=== PATIENT | male | born 1965 | race Caucasian/White ===

== ENCOUNTER → 2017-04-09 10:05 | Outpatient (CLI) | payer BC, SELFPAY ==
--- NOTE | 2017-04-09 10:18 | XR_ITS ---
XR ribs LT min 3V w CXR1V Ordering Physician: Izzy Cui Patient Age: 51 years: Male HISTORY: ITS.REASON: LEFT RIB PAIN Injury Post into chair. TECHNIQUE: Oblique views along with AP chest above and below diaphragm left rib evaluation COMPARISON : FINDINGS . Recent/acute Posterior Left seventh rib fracture , near the level of the tip of of scapula on these images. . The lungs are well expanded and clear with no active disease. . No pneumothorax evident. No pleural effusion. No pleural thickening. The heart abby and mediastinal structures satisfactory. IMPRESSION: *Posterior Left seventh rib fracture
== END ==
PROVIDERS: PCP Nurse Practitioner Family; Visit Provider Nurse Practitioner Family
DX: R07.81 Pleurodynia (principal)
CPT/HCPCS: 71101

== ENCOUNTER → 2017-09-06 14:14 | Outpatient (CLI) | payer BC, SELFPAY ==
--- NOTE | 2017-09-06 14:17 | US_ITS ---
ULTRASOUND THYROID. , Ultrasound neck PROCEDURE: Multiple sagittal & transverse ultrasound images of the thyroid. With limited survey remainder of neck HISTORY: Fullness the left side of the neck COMPARISON: None ----- FINDINGS: The submitted images focus on the thyroid No thyroid nodule or mass is evident. Generous size gland bilaterally. Normal flow to both right and left lobe. RIGHT LOBE: 4.1 cm length x 2.2 cm x 2. 1 cm AP on my measurements LEFT LOBE: 3.8 cm x 1.8 cm x 1.7 cm AP with my measurements . ISTHMUS: Generous thickness isthmus measures nearly 6 mm AP . Small 4 mm x 1.5 mm Tiny cystic area at the left isthmus IMPRESSION ...... Mildly thickened isthmus with generous volume right and left thyroid lobe borderline enlarged thyroid gland bilateral. no significant thyroid nodule. Only question a Tiny 4 mm x 1.5 mm cyst at the left isthmus This study primarily surveys the thyroid with limited evaluation on the neck . Recommend CT neck with contrast for more extensive neck evaluation beyond thyroid region.
== END ==
PROVIDERS: Family Provider Family Medicine; PCP Nurse Practitioner Family; Visit Provider Family Medicine
DX: R22.1 Localized swelling, mass and lump, neck (principal)
CPT/HCPCS: 76536

== ENCOUNTER → 2017-10-04 07:49 | Outpatient (CLI) | payer BC, SELFPAY ==
--- NOTE | 2017-10-04 07:51 | CT_ITS ---
CT soft tissue neck wo con Ordering Physician: Jayshree Wesley MD Patient Age: 52 years: Male HISTORY: ITS.REASON: LOCALIZED SWELLING,MASS OR LUMP IN NECK Soft tissue swelling per patient on the left side TECHNIQUE: Helical CT scanning performed at neck. No Oral nor IV contrast utilized. Axial sagittal and coronal reconstructions performed on CT workstation. All CT scans at this facility used one or more dose reduction techniques , viz: automatic exposure control, ma/Kv adjustment per patient's size, (including targeted exam where dose matched to the indication; i.e. head); or iterative reconstruction technique COMPARISON :None FINDINGS CT neck studies without contrast are of decreased sensitivity and limited. Lack of contrast Make it more difficult to distinguish vascular structures, lymph nodes & tissue planes. The technologist did not place any markers over any evident palpable areas if there is a palpable area. I see no significant neck adenopathy nor neck mass . the thyroid gland slightly longer on the right than left but no discrete nodule or mass associated. There is some asymmetry of the submandibular gland with the left submandibular gland slightly more generous than the right. . increased tortuous ectatic appearing superficial right neck veins throughout the right neck. These are not evident on the left The right jugular vein is distended, notably more prominent on the right than left. With this the external jugular is quite pronounced in the right anterior to the sternocleidomastoid. With these observations survey the upper chest.. SVC unremarkable. No dominant masses at upper chest. Only Scattered moderate nodes are seen at the mediastinum including AP window where. . Generous caliber aortic arch and with descending aorta measuring 3 cm. Ascending aorta 3.5 cm maximally. . The nasopharynx, oropharynx on show no significant findings. Prominent streak artifact does obscure structures and oropharynx. Minimal punctate calcification at paraPharyngeal and tonsils region noted . Small pleural-based density at the right upper lung, towards apex likely due to scarring but would benefit from follow-up. A CT chest in 6 months ideally. Mild emphysematous changes and bleb formation right apex also noted IMPRESSION: ...... No discrete left neck mass is identified on this noncontrast study. The lack of contrast does decrease ability to discern structures & decrease sensitivity. No palpable mass was marked by the technologist either to draw attention to the area of concern.. Incidentally note asymmetric prominent venous structures throughout the right neck, including both prominent dilated internal jugular vein and tortuous dilated external jugular venous branches. These may be evident clinically... In view of this survey of SVC and upper chest show no additional significant findings that may contribute to to this appearance.. At the symptomatic left neck, only Question Perhaps mild asymmetry of submandibular glands. Left submandibular glands slightly different contour than the the right & perhaps extending very slightly more inferiorly. Although this is unimpressive on CT, If this is the site of fullness then it may warrant follow-up ultrasound of submandibular glands ( vs follow-up CT neck with contrast) .
== END ==
PROVIDERS: Family Provider Family Medicine; PCP Nurse Practitioner Family; Visit Provider Family Medicine
DX: R22.1 Localized swelling, mass and lump, neck (principal)
CPT/HCPCS: 70490

== ENCOUNTER → 2018-09-17 09:29 | Outpatient (POV) | payer BC, SELFPAY | PROVIDERS: Visit Provider Dermatology | DX: Z00.00 Encounter for general adult medical examination without abnormal findings (principal) ==

== ENCOUNTER → 2019-07-09 13:05 | Outpatient (CLI) | payer BC, SELFPAY ==
--- NOTE | 2019-07-09 13:11 | XR_ITS ---
PROCEDURE: XR SHOULDER LT MIN 2V CLINICAL INDICATION: LT SHOULDER PAIN COMPARISON: No exams were available for comparison FINDINGS: No fracture or dislocation. No lytic or blastic change. There are mild osteoarthritic changes at the acromioclavicular joint and there is a slightly high-riding humeral head with mild subacromial stenosis which may be seen with rotator cuff disease. There is an old fracture of the left 7th rib IMPRESSION: No acute findings. There are mild osteoarthritic changes at the acromioclavicular joint and there is a slightly high-riding humeral head with mild subacromial stenosis which may be seen with rotator cuff disease. Dictated by: David Hutson MD 07/09/2019 14:42 Electronically signed by David Hutson MD in [facility] 07/09/2019 14:43
--- NOTE | 2019-07-09 13:11 | XR_ITS ---
PROCEDURE: XR CERVICAL SPINE 5V CLINICAL INDICATION: LT SHOULDER PAIN Neck pain COMPARISON: CS5 CERVICAL SPINE 4 OR 5 VIEWS from 11/16/2016 FINDINGS: Normal alignment. There is degenerative disc disease at C5-C6 and C6-C7 and C7-T1. Prominent anterior syndesmophytes are present from C2 to C7 consistent with DISH. There is mild uncovertebral hypertrophy with mild right foraminal narrowing at C5-C6 and C6-C7 and on the left at C3-C4 C4-C5 and C6-C7. Carotid artery calcifications are present. There is some calcification posteriorly within the soft tissues at C5 and C6. Compared to 11/16/2016 there has been no significant change. No fracture or dislocation. IMPRESSION: Cervical spondylosis with degenerative disc disease and uncovertebral arthropathy along with DISH as described above. Dictated by: David Hutson MD 07/09/2019 14:56 Electronically signed by David Hutson MD in [facility] 07/09/2019 14:56
== END ==
PROVIDERS: PCP Family Medicine; Visit Provider Family Medicine
DX: M25.512 Pain in left shoulder (principal)
CPT/HCPCS: 72050; 73030

== ENCOUNTER → 2019-07-16 13:53 | Outpatient (CLI) | payer BC, SELFPAY ==
--- NOTE | 2019-07-16 13:59 | CT_ITS ---
PROCEDURE: CT CERVICAL SPINE WO CON CLINICAL INDICATION: LT SHOULDER PAIN,PARALYSIS LT UPPER EXTREMITY Posterior neck pain radiating down left side of neck into the shoulders and down left arm COMPARISON: [id number] XR ribs LT min 3V w CXR1V from 04/09/2017 TECHNIQUE: Study is performed without contrast secondary to history of contrast reaction. Axial images obtained with sagittal and coronal reformats. All CT scans at the facility use one or more dose reduction, viz: automated exposure control, ma/kV adjustment per patient size (including targeted exams where dose is matched to indication, i.e. head), or iterative reconstruction technique. Axial spiral CT scanning performed of the cervical spine beginning at the base of the skull and continuing to the upper T-spine. 3-D multiplanar reconstruction with 3-D manipulation of volumetric data set in image rendering was completed by the radiologist and/or technologist with the supervision of the radiologist on independent workstation. FINDINGS: There is normal alignment. There is DISH of the cervical spine with prominent anterior syndesmophytes from C2 to C7 most prominent at C2-C3 and C4. No acute fracture or dislocation is evident. There is multilevel cervical spondylosis. C2-C3: Small central disc protrusion. C3-C4: Mild degenerative disc disease. C4-C5: Degenerate disc disease with endplate osteophytes and a suggestion of a broad-based central disc protrusion or bulge. C5-C6 degenerate disc disease with endplate hypertrophic changes with borderline narrowing of the canal. C6-C7: Degenerative disc disease with endplate hypertrophic changes and bulging disc along with uncovertebral hypertrophy with mild bilateral foraminal narrowing and narrowing of the canal at 10 mm. C7-T1: Mild left foraminal narrowing. There is some scarring in the lung apices and there is some mild pleural thickening in the posterior hemithorax at the 3rd and 4th rib area on the right and 3rd rib on the left. There is prominent pannus formation at the sternoclavicular junction on both sides IMPRESSION: 1. DISH of the cervical spine 2. Multilevel cervical spondylosis as detailed above. There is degenerative disc disease with disc protrusions, bulges, and endplate and facet and uncovertebral hypertrophy. Please see above for detailed description at each level. MRI may provide further evaluation and to determine if there is any impingement upon the spinal cord from the underlying degenerative changes Dictated by: David Hutson MD 07/16/2019 16:54 Electronically signed by David Hutson MD in [facility] 07/16/2019 16:54
== END ==
PROVIDERS: PCP Family Medicine; Visit Provider Family Medicine
DX: M25.512 Pain in left shoulder (principal); G83.24 Monoplegia of upper limb affecting left nondominant side
CPT/HCPCS: 72125

== ENCOUNTER → 2019-07-31 13:35 | Outpatient (CLI) | payer BC, SELFPAY ==
--- NOTE | 2019-07-31 13:40 | MR_ITS ---
PROCEDURE: MR CERVICAL SPINE WO CON CLINICAL INDICATION: CERVICALGIA Neck pain, left shoulder pain, left upper extremity numbness COMPARISON: CT CERVICAL SPINE WO CON from 07/16/2019 TECHNIQUE: Standard multiplanar multiecho sequences are performed without contrast. 3-D MIP and myelographic images are also rendered and reviewed FINDINGS: There is normal alignment. There is slight reversal of the cervical lordosis. The craniocervical junction has an unremarkable appearance. There is DISH of the cervical spine with prominent anterior osteophytes from C2 to C7 as described in the CT report. C2-C3: Unremarkable. C3-C4: Unremarkable. C4-C5: Bulging disc with a both a right and left paracentral area of disc protrusion. This results in canal stenosis with impingement upon the cord anteriorly with flattening of the cord. The canal measures approximately 8 mm in the paracentral region both right and left side. There is resultant bilateral lateral recess narrowing. There is uncovertebral hypertrophy with bilateral foraminal narrowing C5-C6: Degenerative disc disease with bulging disc with narrowing of the canal at 8 mm with mild impingement and flattening upon the anterior aspect of the cord with severe bilateral lateral recess and foraminal narrowing. There is some ossification of the posterior longitudinal ligament at the C6 level posteriorly C6-C7: Degenerative disc disease with bulging disc/broad-based central disc protrusion with resultant canal stenosis at 8 mm with mild impingement and flattening upon the anterior aspect of the cord. Prominent posterior longitudinal ligament at C7 noted C7-T1: Unremarkable. IMPRESSION: 1. DISH of the cervical spine with multilevel cervical spondylosis. Please see above for detailed description at each level. 2. C4-C5: Bulging disc with a both a right and left paracentral area of disc protrusion. This results in canal stenosis with impingement upon the cord anteriorly with flattening of the cord. The canal measures approximately 8 mm in the paracentral region both right and left side. There is resultant bilateral lateral recess narrowing. There is uncovertebral hypertrophy with bilateral foraminal narrowing 3. C5-C6: Degenerative disc disease with bulging disc with narrowing of the canal at 8 mm with mild impingement and flattening upon the anterior aspect of the cord with severe bilateral lateral recess and foraminal narrowing. There is some ossification of the posterior longitudinal ligament at the C6 level posteriorly 4. C6-C7: Degenerative disc disease with bulging disc/broad-based central disc protrusion with resultant canal stenosis at 8 mm with mild impingement and flattening upon the anterior aspect of the cord Dictated by: David Hutson MD 08/01/2019 10:36 Electronically signed by David Hutson MD in [facility] 08/01/2019 10:36
== END ==
PROVIDERS: PCP Family Medicine; Visit Provider Neurological Surgery
DX: M54.2 Cervicalgia (principal)
CPT/HCPCS: 72141; 76376

== ENCOUNTER 2019-09-24 16:30 | Outpatient (RCR) | payer BC, SELFPAY | END 2019-09-24 16:35 | disposition home or self-care (01) | LOC: PT 16:30 | PROVIDERS: PCP Family Medicine; Visit Provider Neurological Surgery | DX: M54.2 Cervicalgia (principal) | CPT/HCPCS: 97010; 97012; 97014; 97110; 97140; 97163; G0283 ==

== ENCOUNTER 2020-03-19 16:39 | Emergency (ER) | payer BC, SELFPAY ==
[2020-03-19 18:32] VITALS: BP 139/80; PULSE 75; RESP 14; TEMP 36.8; O2SAT 99; BMI 21.1
--- NOTE | 2020-03-19 18:47 | HMH.EDUTC ---
[facility] [place]: Encounter for laboratory testing for COVID-19 virus Disposition: Home, Self-Care Condition on Discharge: Good Instructions: DI for COVID-19 (Suspected or Confirmed ), Preventing the Spread of Coronavirus Discharge Instructions Additional Instructions: *Monitor Temp, Over the counter Motrin or Tylenol as directed/as needed Tylenol every 4 hours and Motrin every 6 hours (as long as your family doctor has told you that you can take it) for fever or pain. and straight to ER if unable to lower temp less than 101.0 after medication given Follow up IMMEDIATELY for new or worsening symptoms or no Noticeable improvement over the next 48-72 hours. 911 for difficulty breathing or swallowing You were tested for today for COVID19 your test result should be back in the next 24-48 hours, you may call to the [facility] to see if your test results are back in the next 48 hours [phone] [facility] hours are 9am-9pm You was given a handout with instructions for Self Quarantine and Self isolation for while you wait on test results and what to do if they are positive If you are positive the Health Dept will be contacting you also Referrals: Delano Rodriguez MD [Primary Care Provider] - As needed Forms: Work/School Release Medical Decision Making - Elias Inquiry Pt receiving controlled substance: No Elias was queried for this patient: No Vital Signs: 03/19/20 18:32 Temperature 98.2 F Temperature Source Oral Pulse Rate [Right Radial] 75 Respiratory Rate 14 Blood Pressure [Right Arm] 139/80 Blood Pressure Mean [Right Arm] 99 Blood Pressure Source [Right Arm] Automatic Cuff Blood Pressure Position [Right Arm] Sitting 02 Sat by Pulse Oximetry 99 Oxygen Delivery Method Room Air Orders (Tests/Meds): ORDERS Category Date Time Status Covid-19 Nasal PCR ([facility]) Routine Lab 03/19/20 18:10 [place] [facility] [place] - General Stated complaint: covid test Time Seen by Provider: 03/19/20 18:47 Mode of Arrival: Ambulatory Source of Information: Patient Limitations: No Limitations Description of Symptoms (Recalled from Triage Doc. by RN): Pt wanting a covid test, states no symptoms, had a possible positive contact HEENT Symptoms (Recalled from RN notes): No Resp Symptoms (Recalled from RN notes): No Skin Symptoms (Recalled from RN notes): No MS Symptoms (Recalled from RN notes): No Functional Status (Recalled from RN notes): n/a - History of Present Illness Provider Complaint: Patient states that he has been around several people that has since tested positive for COVID States that he is not having any symptoms but still wanted to get tested - Related Data Allergies Allergy/AdvReac Type Severity Reaction Status Date / Time Contrast Media, Iodine Allergy Unknown Uncoded 03/06/17 14:36 Related - Worker's Comp Is this a Worker's Comp case?: No [facility] History - Hepatitis A Screen Drug use history?: No High risk sexual behaviors?: No History of sexually transmitted infection?: No Currently employed?: No Childcare worker?: No Do you have indoor plumbing?: Yes Do you have electricity?: Yes Attestation statement:: This patient has been screened for Hepatitis A risk factors. I have reviewed the patient's past medical history: Yes ROS Obtained: Yes All systems reviewed & no additional complaints, Yes Systems reviewed as appropriate & no additional complaints - Constitutional Constitutional: Reports system reviewed and no additional complaints, except as docu, Denies body ache, Denies chills, Denies fever(s), Denies headache(s), Denies night sweats - ENT Ears, Nose, Mouth, and Throat: Reports system reviewed and no additional complaints, except as docu - Cardiovascular Cardiovascular: Reports system reviewed and no additional complaints, except as docu - Respiratory Respiratory: Yes system reviewed and no additional complaints, except as docu - Gastrointestinal Gastrointestingal: Repor
[2020-03-19 18:55] VITALS: BP 138/70; PULSE 87; RESP 16; TEMP 36.8; O2SAT 98
== END 2020-03-19 18:57 | disposition home or self-care (01) ==
PROVIDERS: Emergency Provider Nurse Practitioner; PCP Family Medicine
DX: Z20.822 Contact with and (suspected) exposure to COVID-19 (principal)
CPT/HCPCS: 99202; G0463; U0003

== ENCOUNTER 2020-04-08 10:53 | Emergency (ER) | payer BC, SELFPAY ==
[2020-04-08 11:05] VITALS: BP 120/79; PULSE 89; RESP 20; TEMP 36.6; O2SAT 98; BMI 21.1
--- NOTE | 2020-04-08 11:22 | HMH.EDUTC ---
[facility] [place] Clinical Impression: Exposure to COVID-19 virus Acute bronchitis Qualifiers: Bronchitis organism: unspecified organism Qualified Code(s): J20.9 - Acute bronchitis, unspecified Disposition: Home, Self-Care Condition on Discharge: Good Instructions: DI for COVID-19 (Suspected or Confirmed ), Preventing the Spread of Coronavirus Discharge Instructions Additional Instructions: Drink plenty of fluids. Take tylenol for pain or fever. Return if you begin to have difficulty breathing. Follow up with your regular doctor. GO TO THE ER FOR ANY WORSENING SYMPTOMS Prescriptions: Benzonatate [Tessalon Perle 100mg Cap] 100 mg PO TIDP PRN #30 cap PRN Reason: Cough Transmission Status: Received by [facility] Azithromycin [Z-Amauri 250mg Tab*] 250 mg PO UD DOSE PK #6 tab Transmission Status: Received by [facility] Referrals: Jayshree Wesley MD [Primary Care Provider] - Time of Disposition: 11:28 Medical Decision Making - Medical Records Medical records reviewed: No: I reviewed the patient's medical records. - Elias Inquiry Pt receiving controlled substance: No Vital Signs: 04/08/20 11:05 04/08/20 11:28 Temperature 97.8 F 97.8 F Temperature Source Oral Pulse Rate 89 Pulse Rate [Right Brachial] 89 Respiratory Rate 20 20 Blood Pressure 120/79 Blood Pressure [Right Arm] 120/79 Blood Pressure Mean [Right Arm] 92 Blood Pressure Source [Right Arm] Automatic Cuff Blood Pressure Position [Right Arm] Sitting 02 Sat by Pulse Oximetry 98 Oxygen Delivery Method Room Air Orders (Tests/Meds): ORDERS Category Date Time Status Covid-19 Nasal PCR Sendout P&C Routine Lab 04/08/20 11:15 Received [facility] [place] HPI - General Stated complaint: covid test Time Seen by Provider: 04/08/20 11:23 - History of Present Illness Provider Complaint: He has been on quarentine for a covid exposure that happened 6 days ago. He has began having chest congestion and a cough yesterday. He has smoked cigarettes for the past 30 years. Onset (ago): hour(s) - Related Data Previous Rx's Medication Instructions Recorded Azithromycin [Z-Amauri 250mg Tab*] 250 mg PO UD DOSE PK #6 tab 04/08/20 Benzonatate [Tessalon Perle 100mg 100 mg PO TIDP PRN #30 cap 04/08/20 Cap] Allergies Allergy/AdvReac Type Severity Reaction Status Date / Time Contrast Media, Iodine Allergy Unknown Uncoded 03/06/17 14:36 Related H History - Hepatitis A Screen Attestation statement:: This patient has been screened for Hepatitis A risk factors. I have reviewed the patient's past medical history: Yes ROS Obtained: Yes All systems reviewed & no additional complaints - Constitutional Constitutional: Reports system reviewed and no additional complaints, except as docu - Eyes Eyes: Reports system reviewed and no additional complaints, except as docu - ENT Ears, Nose, Mouth, and Throat: Reports system reviewed and no additional complaints, except as docu - Cardiovascular Cardiovascular: Reports system reviewed and no additional complaints, except as docu - Respiratory Respiratory: Reports system reviewed and no additional complaints, except as docu - Gastrointestinal Gastrointestingal: Reports: system reviewed and no additional complaints, except as docu Physical Exam - General General appearance: alert, in no apparent distress - Head Head exam: atraumatic, normocephalic, normal inspection - Eye Eye exam: Present: normal appearance, PERRL, EOMI - ENT ENT exam: Present: normal exam, normal oropharynx, mucous membranes moist, TM's normal bilaterally, normal external ear exam - Neck Neck exam: Present: normal inspection, full ROM, trachea midline. Absent: meningismus, lymphadenopathy - Chest Chest inspection: Present: normal inspection, symmetric chest wall rise. Absent: tenderness - Respiratory Respiratory exam: Present: normal lung sounds bilaterally. Absent: respir
[2020-04-08 11:28] VITALS: BP 120/79; PULSE 89; RESP 20; TEMP 36.6; O2SAT 98
[2020-04-09 11:13] LABS: Covid-19 Nasal PCR Sendout P&C Negative
== END 2020-04-08 11:30 | disposition home or self-care (01) ==
PROVIDERS: Emergency Provider Nurse Practitioner Family; PCP Family Medicine
DX: Z20.822 Contact with and (suspected) exposure to COVID-19 (principal); J20.9 Acute bronchitis, unspecified; F17.210 Nicotine dependence, cigarettes, uncomplicated
CPT/HCPCS: 99202; G0463; U0004

== ENCOUNTER → 2020-10-05 15:37 | Outpatient (POV) | payer BC, SELFPAY | PROVIDERS: Visit Provider Dermatology | DX: Z00.00 Encounter for general adult medical examination without abnormal findings (principal) ==

== ENCOUNTER 2024-08-19 16:12 | Outpatient (CLI) | payer BC, SELFPAY ==
[2024-08-22 17:56] LABS: Lyme B. burgdorferi PCR Blood Negative (Negative)
== END 2024-08-19 23:59 | disposition home or self-care (01) ==
LOC: LAB.DROPOF 16:12
PROVIDERS: PCP Nurse Practitioner; Visit Provider Nurse Practitioner
DX: S30.863A Insect bite (nonvenomous) of scrotum and testes, initial encounter (principal); R59.0 Localized enlarged lymph nodes; W57.XXXA Bitten or stung by nonvenomous insect and other nonvenomous arthropods, initial encounter
CPT/HCPCS: 87476